=== PATIENT | female | born 1980 | race Hispanic/Latino ===

== ENCOUNTER 2019-01-27 09:14 | Emergency (ER) | payer OTHER ==
[2019-01-27 09:35] VITALS: BMI 21.1
[2019-01-27 09:44] VITALS: RESP 18; TEMP 97.9; O2SAT 100
--- NOTE | 2019-01-27 10:07 | ED PDOC ---
Arrival/HPI - General Chief Complaint: Female Genitourinary Time Seen by Provider: 01/27/19 09:15 Historian: Patient - History of Present Illness Narrative History of Present Illness (Text): 01/27/19 10:00 38yr old female presents today with vaginal bleeding, back pain and headache. pt states she has been having headaches on and off for 2 months now for which her doctor told her she has migranes. pt states she developed vaginal bleeding yesterday. pt states that she finished her menstrual cycle on january 16 and started bleeding again yesterday. pt denies fever/chills. 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 no bladder or bowel incontinence. Patient denies numbness weakness or tingling in the extremity. No medications have been taken for pain at home. Patient denies fevers or chills. No chest pain or shortness of breath. Patient denies abdominal pain. No dizziness or weakness. No other complaints Past Medical History - Provider Review Nursing Documentation Reviewed: Yes - Travel History Have you recently traveled outside [place] w/in the past 3 mons?: No - Infectious Disease Hx of Infectious Diseases: None - Psychiatric Hx Substance Use: No - Anesthesia Hx Anesthesia: No Family/Social History - Physician Review Nursing Documentation Reviewed: Yes Family/Social History: Unknown Family HX Smoking Status: Never Smoked Hx Alcohol Use: Yes Frequency of alcohol use: Socially Hx Substance Use: No Allergies/Home Meds Allergies/Adverse Reactions: Allergies No Known Allergies Allergy (Verified 01/27/19 09:35) Review of Systems - Review of Systems Constitutional: absent: Fatigue, Fevers Respiratory: absent: SOB, Cough Cardiovascular: absent: Chest Pain, Palpitations Gastrointestinal: absent: Abdominal Pain, Constipation, Diarrhea, Nausea, Vomiting Genitourinary Female: absent: Dysuria, Frequency, Vaginal Bleeding Musculoskeletal: Back Pain. absent: Arthralgias, Neck Pain Skin: absent: Rash, Pruritis Neurological: Headache. absent: Dizziness Psychiatric: absent: Anxiety, Depression Physical Exam Vital Signs Reviewed: Yes Vital Signs Temp Pulse Resp BP Pulse Ox 01/27/19 09:14 97.9 F 79 18 106/78 100 Temperature: Afebrile Blood Pressure: Normal Pulse: Regular Respiratory Rate: Normal Appearance: Positive for: Well-Appearing, Non-Toxic, Comfortable Pain Distress: None Mental Status: Positive for: Alert and Oriented X 3 - Systems Exam Head: Present: Atraumatic Extroacular Muscles: Present: EOMI Mouth: Present: Moist Mucous Membranes Neck: Present: Normal Range of Motion Respiratory/Chest: Present: Clear to Auscultation, Good Air Exchange. No: Respiratory Distress, Accessory Muscle Use Cardiovascular: Present: Regular Rate and Rhythm, Normal S1, S2. No: Murmurs Abdomen: No: Tenderness, Distention, Rebound, Guarding Genitourinary/Pelvic Exam: Present: Normal External Genitalia, Vaginal Bleeding (minimal bleeding), Cervical os Closed, Other (chaparoned by Medical student Teena Pollock). No: Vaginal Discharge, Vaginal Lesions, Adenexal Tenderness, Adenexal Mass, Cervical Motion Tendernes Back: Present: Normal Inspection, Paraspinal Tenderness (right sided low lumbar paraspinal tenderness). No: CVA Tenderness, Midline Tenderness, Pain with Leg Raise Upper Extremity: Present: Normal ROM Lower Extremity: Present: Normal ROM Neurological: Present: GCS=15, Speech Normal Skin: Present: Warm, Dry, Normal Color. No: Rashes Psychiatric: Present: Alert, Oriented x 3 Medical Decision Making ED Course and Treatment: 01/27/19 11:19 Patient is nontoxic well appearing in no distress. vital signs are stable. CBC: wnl CMP: wnl Urinalysis: + blood, no leukocytes Ultrasound:FINDINGS: UTERUS: Measures 3.6 x 5.2 x 7.6 cm. Normal in size and appearance. No fibroid or other mass lesion seen. ENDOMETRIUM: Measures 4.8 mm in diameter. No ultrasound findings to suggest gestational sac, fluid, debris, mass or polyp or other pathologic process within the endometrium. CERVIX: No cervical abnormality identified. RIGHT OVARY: Measures 1.9 x 3.9 x 4.2 cm. No solid mass. Normal flow. Two separate simple cysts 1.1 x 1.5 cm. Larger simple cyst 1.6 x 8 cm. LEFT OVARY: Measures 1.4 x 2.6 x 2.9 cm. No solid mass. Normal flow. FREE FLUID: No significant free fluid noted. OTHER FINDINGS: None. IMPRESSION: Unremarkable uterus, endometrial echo complex and left adnexa. Simple cysts (2) right adnexa. head CT; FINDINGS: HEMORRHAGE: No intracranial hemorrhage. BRAIN: No mass effect or edema. No atrophy or chronic microvascular ischemic changes. VENTRICLES: Unremarkable. No hydrocephalus. CALVARIUM: Unremarkable. PARANASAL SINUSES: Unremarkable as visualized. No significant inflammatory changes. MASTOID AIR CELLS: Unremarkable as visualized. No inflammatory changes. OTHER FINDINGS: None. IMPRESSION: No acute intracranial abnormalities. No significant findings to account for the clinical presentation. Patient reassessment: Patient sleeping in the emergency room in no distress. Discussed all the results the patient. advised f/u with the fiber locking supervisor/neurologist and primary care physician within the next 2 days. advised immediate return if symptoms worsen,persist or if new symptoms develop. Patient reassessment. Patient ambulating with a steady gait. Patient verbalizes understanding of discharge instructions and need for immediate followup. All aspects of this case were discussed the attending of record. Impression: vaginal bleeding, back pain, headache Motrin every 6 hours as needed for pain Flexeril; 1 tablet every 8 hours as needed for muscle spasms; may cause drowsiness. Increase fluids Followup with the GUARD CAPTAIN within the next 2 days Follow up with the neurologist within the next 2 days. Follow up with the primary care physician within the next 2 days. Return immediately if symptoms worsen persist or if new symptoms develop: High fevers, heavy bleeding, severe abdominal pain, vomiting, diarrhea, dizziness or weakness or any other concerning symptoms develop. Reassessment Condition: Re-examined, Improved - RAD Interpretation Radiology Orders: 01/27/19 09:42 TRANSVAGINAL [US] Stat Disposition/Present on Arrival - Present on Arrival Any Indicators Present on Arrival: No History of DVT/PE: No History of Uncontrolled Diabetes: No Urinary Catheter: No History of Decub. Ulcer: No History Surgical Site Infection Following: None - Disposition Have Diagnosis and Disposition been Completed?: Yes Diagnosis: Vaginal bleeding, Headache, Back pain Disposition: HOME/ ROUTINE Disposition Time: 11:38 Patient Plan: Discharge Patient Problems: Current Active Problems Problem Status Onset Back pain Acute Headache Acute Vaginal bleeding Acute Condition: GOOD Discharge Instructions (ExitCare): Low Back Pain in Adults, Headache, Adult Additional Instructions: Motrin every 6 hours as needed for pain Flexeril; 1 tablet every 8 hours as needed for muscle spasms; may cause drowsiness. Increase fluids Followup with the [facility]TAIN within the next 2 days Follow up with the neurologist within the next 2 days. Follow up with the primary care physician within the next 2 days. Return immediately if symptoms worsen persist or if new symptoms develop: High fevers, heavy bleeding, severe abdominal pain, vomiting, diarrhea, dizziness or weakness or any other concerning symptoms develop. Prescriptions: Cyclobenzaprine [Cyclobenzaprine HCl] 10 mg PO Q8 #10 tab Ibuprofen [Motrin] 600 mg PO Q6H PRN #20 tab PRN Reason: pain/fever reduction Referrals: Bill Duong MD [Staff Provider] - Follow up with primary Bebeto Abernathy MD [Staff Provider] - Follow up with primary Olvin Al DO [Family Provider] - Follow up with primary Forms: WORK NOTE
[2019-01-27 10:25] LABS: BASO # 0.03 K/mm3 (0.0-2.0); BASO % 0.6 % (0.0-3.0); EOS # 0.2 (0.0-0.7); EOS % 3.9 % (1.5-5.0); HEMOGLOBIN 11.9 g/dL (12.0-16.0); LYMPH # 1.4 (1.2-3.4); LYMPH % 26.5 % (22.0-35.0); MEAN CELL VOLUME 91.6 fl (80.0-105.0); MEAN CORPUSCULAR HEMOGLOBIN 29.4 pg (25.0-35.0); MEAN CORPUSCULAR HGB CONC 32.1 g/dl (31.0-37.0); MEAN PLATELET VOLUME 10.3 fl (7.0-11.0); MONO # 0.5 (0.1-0.6); PH,URINE >=9.0 (4.7-8.0); RBC 4.05 10^6/uL (3.5-6.1); RED CELL DISTRIBUTION WIDTH 13.5 % (11.5-14.5); URINE BILIRUBIN NEGATIVE (NEGATIVE); URINE BLOOD LARGE (NEGATIVE); URINE GLUCOSE (UA) NEGATIVE (NEGATIVE); URINE LEUKOCYTE ESTERASE NEGATIVE Leu/uL (NEGATIVE); URINE PROTEIN 100 mg/dL (<30 mg/dL); URINE UROBILINOGEN 0.2 E.U./dL (<1 E.U./dL); WHITE BLOOD COUNT 5.4 10^3/uL (4.5-11.0)
[2019-01-27 10:28] LABS: URINE APPEARANCE TURBID (CLEAR); URINE COLOR YELLOW (YELLOW)
[2019-01-27 10:33] LABS: URINE BACTERIA FEW /hpf; URINE RBC TNTC /hpf (0-2)
[2019-01-27 10:37] LABS: ALB/GLOB RATIO 1.5 (1.1-1.8); ALBUMIN 4.3 g/dL (3.0-4.8); ALT/SGPT 17 U/L (7-56); AST/SGOT 22 U/L (14-36); BLOOD UREA NITROGEN 12 mg/dL (7-21); CALCIUM 8.6 mg/dL (8.4-10.5); GFR NON-AFRICAN AMERICAN > 60
[2019-01-27] MEDS ORDERED: Sodium Chloride 0.9% 1,000 ML IV STA (11:03)
--- NOTE | 2019-01-27 11:27 | US ---
Date of service: 01/27/2019 HISTORY: Bleeding, back pain. LMP 01/12/2019. COMPARISON: None available. TECHNIQUE: Transvaginal only. Real -time technique with 2D, duplex and color Doppler FINDINGS: UTERUS: Measures 3.6 x 5.2 x 7.6 cm. Normal in size and appearance. No fibroid or other mass lesion seen. ENDOMETRIUM: Measures 4.8 mm in diameter. No ultrasound findings to suggest gestational sac, fluid, debris, mass or polyp or other pathologic process within the endometrium. CERVIX: No cervical abnormality identified. RIGHT OVARY: Measures 1.9 x 3.9 x 4.2 cm. No solid mass. Normal flow. Two separate simple cysts 1.1 x 1.5 cm. Larger simple cyst 1.6 x 8 cm. LEFT OVARY: Measures 1.4 x 2.6 x 2.9 cm. No solid mass. Normal flow. FREE FLUID: No significant free fluid noted. OTHER FINDINGS: None. IMPRESSION: Unremarkable uterus, endometrial echo complex and left adnexa. Simple cysts (2) right adnexa.
--- NOTE | 2019-01-27 14:03 | CT ---
Date of service: 01/27/2019 PROCEDURE: CT HEAD WITHOUT CONTRAST. HISTORY: intermittent headaches x 2 months COMPARISON: None available. TECHNIQUE: Axial computed tomography images were obtained through the head/brain without intravenous contrast. Supplemental Coronal and Sagittal projections created and reviewed. Radiation dose: Total exam DLP = 1013.53 mGy-cm. This CT exam was performed using one or more of the following dose reduction techniques: Automated exposure control, adjustment of the mA and/or kV according to patient size, and/or use of iterative reconstruction technique. FINDINGS: HEMORRHAGE: No intracranial hemorrhage. BRAIN: No mass effect or edema. No atrophy or chronic microvascular ischemic changes. VENTRICLES: Unremarkable. No hydrocephalus. CALVARIUM: Unremarkable. PARANASAL SINUSES: Unremarkable as visualized. No significant inflammatory changes. MASTOID AIR CELLS: Unremarkable as visualized. No inflammatory changes. OTHER FINDINGS: None. IMPRESSION: No acute intracranial abnormalities. No significant findings to account for the clinical presentation.
[2019-01-27 18:12] VITALS: BP 111/72; PULSE 73
== END 2019-01-27 15:27 | disposition home or self-care (01) ==
LOC: ED 09:14 → ERH 10:21 → UNDOADMIN 10:21 → ED 15:27
DX: N93.9 Abnormal uterine and vaginal bleeding, unspecified (principal); M54.9 Dorsalgia, unspecified; R51 Headache
CPT/HCPCS: 70450; 76830; 80053; 81001; 81025; 85025; 87086; 96374; 99283; J1885; J7030